=== PATIENT | male | born 1970 | race Caucasian/White ===

== ENCOUNTER 2025-02-22 09:49 | Day surgery (SDC) | payer BC, SELFPAY ==
[2025-02-20 09:23] VITALS: BMI 28.7
[2025-02-22 10:15] VITALS: BP 127/76; PULSE 74; RESP 18; TEMP 36.2; O2SAT 99
--- NOTE | 2025-02-22 10:56 | P.PNANES_ITS ---
[facility] Disclaimer: The information contained in this section may have been updated after the patient was seen, as this information can be updated by other users. Medical History [place] disease Hypertension GERD (gastroesophageal reflux disease) Arthritis Surgical History H/O inguinal hernia repair Family History Mother Cancer Mucosal lentiginous melanoma Social History (Updated 02/20/25 @ 09:20 by Noemi Roldan) Smoking Status: Never smoker alcohol intake: never substance use type: denies use current occupational status: employed Travel in the last 8 weeks: None Have you lived/traveled outside US in past 30 days?: No Contact w/someone who lives/traveled outside US past 30 days?: No Exposure to someone with infectious disease in past 14 days?: No Do you have a fever (greater than 100.4 F or 38 C)?: No Have you tested positive for COVID-19: No Exposed to someone with COVID-19 in past 14 days?: No Do you have a sore throat?: No Do you have a cough?: No Do you have any weakness?: No Are you experiencing any nausea/vomitting?: No Do you have any diarrhea?: No Are you experiencing any unusual bleeding?: No Do you have any muscle aches/pain?: No Do you have any abdominal pain?: No Are you experiencing loss of taste or smell?: No [facility] Anesthesia Checklist Patient Identification Patient Identification: Verbal (Name & ) Structural Data Admitted From: Home Planned Operative Procedure/s: egd Consent for Planned Operative Procedure(s) Verified: Yes NPO Status Verified Time NPO: 00:00 Airway Assessment Mallampati Score:: Class II C-Spine Mobility Assessed: Yes TMJ Mobility Assessed: Yes Dentition: Good Dentition Neurological Assessment Level of Consciousness: Awake, Alert and Appropriate Anesthesia Plan Anesthesia Risk discussed: Yes Anesthesia Plan: Verified ASA Class: II Anesthesia Type: MAC
--- NOTE | 2025-02-22 11:31 | EXP.HP ---
History of Present Illness *Admission Date: 02/22/25 *Reason for visit:: Epigastric abdominal pain, fullness and bloating *History of present illness: Mr. Castañeda is a 54-year-old gentleman who had seen me initially on 10/03/2024 with recurrent epigastric abdominal pain, fullness and bloating. He reported epigastric abdominal pain that will radiate into the lower retrosternal region. He has had normal cardiac testing in the past. He also has had fairly extensive diagnostic testing. He did have prior EGD with Dr. Samm Salazar which was reportedly normal. He had a remote CAT scan and even a more recent CAT scan ([facility]) in early October that was reportedly normal. He has had a normal ultrasound and more recently had a gallbladder HIDA scan. The HIDA scan did show a 34% gallbladder ejection fraction. He did have some symptomatic right upper quadrant pain which was fairly mild with the Kinevac injection. This did not mimic his epigastric pain but does mimic the pain he had previously in the right upper quadrant. He does have generalized discomfort at nighttime in the broad portion of the epigastrium that extends to the umbilicus. He will have more intense pain in the lower retrosternal/more focally at the retro-xiphoid region. With this broader pain, he does report associated bloating. He reports no early satiety. He reports twisting pain in the epigastrium. After his visit in September 2024, I did recommend a combination of MiraLAX plus Citrucel. His prior CAT scan had shown increased fecal burden. He does state that his constipation is much improved and he is taking the MiraLAX and Citrucel daily. I would also recommended herbal Iberogast and prescription buspirone. He is using the Iberogast but only takes the buspirone nightly because he gets dizzy when he uses this in the morning. He still has the upper abdominal pains and this can awaken him from sleep. This can be sometimes intense. He reports no belching, early satiety or dysphagia. [facility] Disclaimer: The information contained in this section may have been updated after the patient was seen, as this information can be updated by other users. Medical History [place] disease Hypertension GERD (gastroesophageal reflux disease) Arthritis Surgical History H/O inguinal hernia repair Family History Mother Cancer Mucosal lentiginous melanoma Social History (Updated 02/20/25 @ 09:20 by Noemi Roldan) Smoking Status: Never smoker alcohol intake: never substance use type: denies use current occupational status: employed Travel in the last 8 weeks: None Have you lived/traveled outside US in past 30 days?: No Contact w/someone who lives/traveled outside US past 30 days?: No Exposure to someone with infectious disease in past 14 days?: No Do you have a fever (greater than 100.4 F or 38 C)?: No Have you tested positive for COVID-19: No Exposed to someone with COVID-19 in past 14 days?: No Do you have a sore throat?: No Do you have a cough?: No Do you have any weakness?: No Are you experiencing any nausea/vomitting?: No Do you have any diarrhea?: No Are you experiencing any unusual bleeding?: No Do you have any muscle aches/pain?: No Do you have any abdominal pain?: No Are you experiencing loss of taste or smell?: No Review of Systems Review of Systems Review of systems (narrative): Negative *Cardiovascular Comments: Negative *Gastrointestinal Comments: Negative *Genitourinary Comments: Negative *Musculoskeletal Comments: Negative *Neurologic Comments: Negative Meds Home Medications and Allergies Home Medications ?Medication ?Instructions ?Recorded ?Confirmed ?Type losartan 100 mg tablet 100 mg PO DAILY 10/02/24 02/20/25 History amlodipine 10 mg tablet 10 mg PO DAILY 10/03/24 02/20/25 History buspirone 10 mg tablet 10 mg PO BID #60 tabs 10/03/24 02/20/25 Rx methylcellulose (laxative) 2 g PO DAILY 01/02/25 02/20/25 History (Citrucel Sugar Free oral powder) polyethylene glycol 3350 17 17 g PO DAILY 01/02/25 02/20/25 History gram/dose oral powder (Miralax) New Prescriptions to Start Prescriptions: Allergies Allergy/AdvReac Type Severity Reaction Status Date / Time No Known Allergies Allergy Verified 02/20/25 09:21 Exam Data for Last 24 hours Vital signs and Labs for Last 24 Hours: Temp Pulse Resp BP Pulse Ox 97.1 F L 74 18 127/76 99 02/22/25 10:15 02/22/25 10:15 02/22/25 10:15 02/22/25 10:15 02/22/25 10:15 I & O for Last 24 hours: Intake & Output 02/19/25 02/20/25 02/21/25 02/22/25 23:59 23:59 23:59 23:59 Weight 200 lb *Routine HEENT Exam Head: Present normocephalic Eye: Present EOMI and PERRL ENT: Present mucous membranes moist *Routine Neck Exam Neck: Present supple *Routine Respiratory Exam Respiratory: Present CTA bilaterally *Routine Cardiovascular Exam Cardiovascular: Present RRR *Routine Abdominal Exam Abdominal: Present soft and normoactive bowel sounds; Absent tenderness *Routine Rectal Exam Rectal:: deferred *Routine Genitalia Exam Genitalia:: deferred *Routine Extremities Exam Extremities: Absent cyanosis, clubbing or edema *Routine Skin Exam Skin: Present warm; Absent rash *Routine Neurological Exam Neurological: Present alert and oriented X3 Assessment and Plan *Assessment and plan (1) Epigastric abdominal pain: Status: Acute Category: Medical Code(s): R10.13 - Epigastric pain (2) Retrosternal pain: Status: Acute Category: Medical Code(s): R07.2 - Precordial pain (3) Functional abdominal pain syndrome: Status: Acute Category: Medical Code(s): R10.9 - Unspecified abdominal pain (4) Bloating: Status: Acute Category: Medical Code(s): R14.0 - Abdominal distension (gaseous) (5) Functional dyspepsia: Status: Acute Category: Medical Code(s): K30 - Functional dyspepsia (6) Early satiety: Status: Acute Category: Medical Code(s): R68.81 - Early satiety (7) Obstipation: Status: Acute Category: Medical Code(s): K59.00 - Constipation, unspecified Plan A/P: 1. Epigastric and retrosternal pain with bloating, fullness and dyspepsia is the preprocedural diagnosis. The patient will be anesthetized/sedated using MAC sedation. The patient has been seen and examined. Cardiac and lung assessment prior to the examination is stable. Proceed with planned diagnostic EGD
--- NOTE | 2025-02-22 11:33 | P.PCN_ITS ---
[facility] Procedure Note Date: 02/22/25 Time: 11:46 Procedure Note:: Upper Endoscopy Procedure Report: Esophagogastroduodenoscopy with cold biopsies Endoscopost: Balwinder Higginbotham II, MD Referring Physician: [facility] ([facility]3], [address] [place] [id number] Date of Procedure: February 22, 2025 Equipment: Olympus GIF 190 standard upper endoscope Sedation: MAC sedation Indications: Mr. Castañeda is a 54-year-old gentleman who is here for diagnostic upper endoscopy. He had seen me initially on 10/03/2024 with recurrent epigastric abdominal pain, fullness and bloating. He reported epigastric abdominal pain that will radiate into the lower retrosternal region. He has had normal cardiac testing in the past. He also has had fairly extensive diagnostic testing. He did have prior EGD with Dr. Samm Salazar which was reportedly normal. He had a remote CAT scan and even a more recent CAT scan ([facility]) in early October that was reportedly normal. He has had a normal ultrasound and more recently had a gallbladder HIDA scan. The HIDA scan did show a 34% gallbladder ejection fraction. He did have some symptomatic right upper quadrant pain which was fairly mild with the Kinevac injection. This did not mimic his epigastric pain but does mimic the pain he had previously in the right upper quadrant. He does have generalized discomfort at nighttime in the broad portion of the epigastrium that extends to the umbilicus. He will have more intense pain in the lower retrosternal/more focally at the retro-xiphoid region. With this broader pain, he does report associated bloating. He reports no early satiety. He reports twisting pain in the epigastrium. After his visit in September 2024, I did recommend a combination of MiraLAX plus Citrucel. His prior CAT scan had shown increased fecal burden. He does state that his constipation is much improved and he is taking the MiraLAX and Citrucel daily. I would also recommended herbal Iberogast and prescription buspirone. He is using the Iberogast but only takes the buspirone nightly because he gets dizzy when he uses this in the morning. He still has the upper abdominal pains and this can awaken him from sleep. This can be sometimes intense. He reports no belching, early satiety or dysphagia. Procedure: Prior to the procedure, a history and physical exam was performed, and patient's medications and allergies were reviewed. The risks, benefits and alternatives of the sedation and procedure were discussed with the patient. All questions were answered and informed consent was obtained. The patient was brought to the procedure room. Patient identification and proposed procedure were verified by the physician and the nurse. The patient was placed in a left lateral decubitus position and the scope was passed under direct vision. Throughout the procedure, the patient's blood pressure, pulse, and oxygen saturations were monitored continuously. The upper GI endoscopy was accomplished without difficulty. The patient tolerated the procedure well. Findings: The scope was passed directly into the upper esophagus and advanced to the third portion of the duodenum. The post bulbar duodenum, ampulla and duodenal bulb were normal with normal mucosa and conniventes. Cold biopsies were taken from the first portion of duodenum to rule out celiac disease. The scope was withdrawn through a normal duodenal bulb and pylorus into the stomach. There was evidence of moderate linear reactive gastropathy of the antrum and body of the stomach. Biopsies were obtained from the antrum. The fundus of the stomach was normal. Upon retroflexion there was a very small sliding 1 to 2 cm hiatal hernia. The scope was then withdrawn into the esophagus. There was no evidence of reflux esophagitis. Biopsies were taken from the GE junction. There were tertiary contractions and evidence of mild esophageal dysmotility. The remainder of the esophageal mucosa was normal. Impression: 1. Nonerosive GERD with mild esophageal dysmotility and very small sliding 1 to 2 cm hiatal hernia 2. Moderate linear reactive gastropathy Plan: I will follow-up the biopsies. I do feel that most of his symptoms of dyspepsia are related to and driven by lower intestinal gas pressure g radients/high gas pressure buildup resulting in backflow of bile and peptic fluid from the duodenum into the stomach (duodenal reflux). This gas production (carbon dioxide, hydrogen, methane, etc.) from the lower intestinal tract is the byproduct of colonic bacterial fermentation. This colonic fermentation occurs when there is more carbohydrate (dietary starches, sugars and high residue plant fiber) substrate that does not get digested (in the middle or small intestine) or occurs when there is colonic fecal buildup and colonic bacterial overgrowth. This indeed leads to bloating and the gas pressure buildup with gas pressure gradients that do drive backflow and dyspepsia. We have discussed treatment options and I will address this with the patient.
[2025-02-22 11:35] VITALS: O2SAT 100
[2025-02-22 11:53] VITALS: BP 107/64; PULSE 58; RESP 16; TEMP 36.8; O2SAT 99
[2025-02-22 12:03] VITALS: BP 115/71; PULSE 48; RESP 16; TEMP 36.8; O2SAT 99
[2025-02-22 12:13] VITALS: BP 98/65; PULSE 52; RESP 16; TEMP 36.8; O2SAT 99
[2025-02-22 12:22] VITALS: BP 104/61; PULSE 59; RESP 18; TEMP 36.8; O2SAT 98
== END 2025-02-22 13:20 | disposition home or self-care (01) ==
PROVIDERS: Visit Provider Internal Medicine Gastroenterology
PROC: 0DJ08ZZ Inspection of Upper Intestinal Tract, Via Natural or Artificial Opening Endoscopic (ICD-10-PCS; CPT 43239; principal; 2025-02-22 11:30)
DX: K31.9 Disease of stomach and duodenum, unspecified (principal); K44.9 Diaphragmatic hernia without obstruction or gangrene; K22.4 Dyskinesia of esophagus; K21.9 Gastro-esophageal reflux disease without esophagitis; R10.13 Epigastric pain; R07.2 Precordial pain; R10.9 Unspecified abdominal pain; R14.0 Abdominal distension (gaseous)
CPT/HCPCS: 43239

== ENCOUNTER 2025-03-14 11:14 | Outpatient (CLI) | payer BC, SELFPAY ==
--- OUTSIDE RECORDS SUMMARY | 2025-03-14 11:17 | XMS_ITS ---
Care Plan - [facility], [facility] Created on: March 14, 2025 Arturo Castañeda : 1970 Sex: Male Author Organization [facility] , [facility] Address [address] [place] [phone] Phone Care Team Providers Care User Experience Designer Name Role Phone Zane MORGAN, Thien Hughes Unavailable
--- OUTSIDE RECORDS SUMMARY | 2025-03-14 11:17 | XMS_ITS ---
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 Name Role Phone Zane MORGAN, Thien Hughes Unavailable [phone] Plan of Treatment No Plan of Treatment Recorded Assessments Includes: Assessments for all patient encounters No Assessments Recorded Medical Equipment - Implanted Devices Includes: Current and historical Devices No Medical Equipment Recorded Medications Administered Includes: Administered Medications in patient's chart No Administered Medications Recorded Results Includes: Results from 03/14/2024 through 03/14/2025 No Results Recorded For Specified Dates History of Present Illness History of Present Illness not supported for this document type No History of Present Illness Recorded Social History No Social History Recorded - Smoking Status Unknown Medical History Includes: Medical History in patient's chart No Medical History Recorded Family History Includes: Family History in patient's chart No Family History Recorded Review of Systems Review of Systems not supported for this document type No Review of Systems Recorded Mental Status No Mental Status Recorded Functional Status No Functional Status Recorded Physical Exam Physical Exam not supported for this document type No Physical Exam Recorded Insurance Includes: Active Insurance Policies Plan Name Member ID Group # Subscriber Relationship Effect tona Dates 1 - [facility] [id number] Arturo Castañeda Se [employer] Clinical Notes Includes: Signed Clinical Notes starting from 11/05/2022 No Clinical Notes Recorded
[2025-03-17 08:14] LABS: Pancreatic Elastase, Fecal >800 (>200)
== END 2025-03-14 23:59 | disposition home or self-care (01) ==
LOC: LAB 11:16
PROVIDERS: Visit Provider Internal Medicine Gastroenterology
DX: R10.9 Unspecified abdominal pain (principal)
CPT/HCPCS: 82656

== ENCOUNTER 2025-07-11 08:55 | Outpatient (CLI) | payer OTHER, SELFPAY ==
--- NOTE | 2025-07-11 09:00 | FL_ITS ---
FINAL REPORT CLINICAL HISTORY: post prandial bloating/epigastric pain 31 seconds fluoro time 2356.52DAP FINDINGS: Small bowel follow-through. HISTORY: Postprandial bloating, acute epigastric pain, constipation. PROCEDURE: The patient ingested barium. Spot and overhead films were obtained.14 images were saved. FINDINGS: The cotton farmer film is unremarkable . The transit time to the colon is normal .Contrast reached the colon at approximately 1 hour. The mucosal fold pattern is normal . Spot images of the terminal ileum are unremarkable . Fluoroscopy time: 31 seconds. Total radiation exposure in DAP: 2356.52 uGym2 IMPRESSION: Normal small bowel follow-through . Reviewed, Interpreted and Dictated by Garrison Bey MD Transcribed by Linda Vital PA-C Authenticated and [facility]
[2025-07-11] MEDS: BARIUM SULFATE(E-Z-AC);750ML BOTTLE 750 ML PO (10:54)
[2025-07-11] MEDS: DIATRIZOATE MEG 66% & DIATRIZOATE NA 10% 30ML UDC 15 ML PO (10:54)
== END 2025-07-11 23:59 | disposition home or self-care (01) ==
LOC: RAD 08:57
PROVIDERS: PCP Family Medicine; Visit Provider Nurse Practitioner Family
DX: R10.13 Epigastric pain (principal); R68.81 Early satiety; R14.0 Abdominal distension (gaseous)
CPT/HCPCS: 74250; Q9963